=== PATIENT | female | born 1980 ===

== ENCOUNTER 2017-07-20 22:48 | Emergency (ER) | payer OTHER ==
[2017-07-20 22:49] VITALS: BMI 24.7
[2017-07-20 22:59] VITALS: BP 131/76; RESP 20; O2SAT 100
[2017-07-20] MEDS ORDERED: Albuterol 0.083% Inhal Sol (2.5 mg/3 mL) UD IH STA (23:16)
[2017-07-20 23:46] LABS: BASO # 0.1 K/uL (0.0-0.2); EOS # 0.1 K/uL (0.0-0.7); EOS % 1.9 % (0.0-4.0); HEMOGLOBIN 11.3 g/dL (12.0-16.0); LYMPH # 0.8 K/uL (1.0-4.3); LYMPH % 11.9 % (20.0-40.0); MEAN CELL VOLUME 83.4 fl (81.0-99.0); MEAN CORPUSCULAR HEMOGLOBIN 26.8 pg (27.0-31.0); MEAN CORPUSCULAR HGB CONC 32.1 g/dL (33.0-37.0); MEAN PLATELET VOLUME 9.4 fl (7.2-11.7); MONO # 0.6 K/uL (0.0-0.8); MONO % 9.1 % (0.0-10.0); NEUT # 4.8 K/uL (1.8-7.0); NEUT % 76.1 % (50.0-75.0); RBC 4.2 Mil/uL (3.80-5.20); RED CELL DISTRIBUTION WIDTH 21.6 % (11.5-14.5); WHITE BLOOD COUNT 6.3 K/uL (4.8-10.8)
[2017-07-20 23:46] LABS: VENOUS BLOOD GAS BASE EXCESS 1.7 mmol/L (0.0-2.0); VENOUS BLOOD GAS PCO2 45 mmHg (40-60); VENOUS BLOOD GAS PO2 20 mm/Hg (30-55); VENOUS BLOOD PH 7.39 (7.32-7.43)
--- NOTE | 2017-07-21 00:07 | ED PDOC ---
HPI: CCC, URI, Sore Throat Time Seen by Provider: 07/20/17 23:02 Chief Complaint (Nursing): Chest Pain Chief Complaint (Provider): Cough History Per: Patient History/Exam Limitations: no limitations Onset/Duration Of Symptoms: Days (x1) Current Symptoms Are (Timing): Still Present Location Of Pain: Headache Associated Symptoms: Fever, Cough (productive), Sputum (clear), Other (body aches, rhinorrhea) Ear Symptoms: Bilateral: None Additional Complaint(s): Leticia Moncada is a 37 year old female, with a past medical history of asthma, who presents to the emergency department complaining of productive cough with clear sputum, chest tightness, mild rhinorrhea, body aches, headache and fever onset since this morning. Patient took Tylenol with relief of fever but feels chest tightness got worst which prompted her visit to the ED. Patient also reports x2 episodes of non bloody, non bilious vomiting. She has a history of asthma but states last time was x6 years ago. She denies any leg swelling, or diarrhea. No further medical complaints. PMD: Dr. Shy Feng Past Medical History Reviewed: Historical Data, Nursing Documentation, Vital Signs Vital Signs: Last Vital Signs Temp 100.2 F H 07/20/17 23:27 Pulse 78 07/20/17 22:51 Resp 20 07/20/17 22:51 BP 131/76 07/20/17 22:51 Pulse Ox 100 07/20/17 22:51 - Medical History PMH: No Chronic Diseases Denies: Asthma, Chronic Kidney Disease - Surgical History Surgical History: Appendectomy - Family History Family History: States: Unknown Family Hx - Social History Current smoker - smoking cessation education provided: No - Immunization History Hx Tetanus Toxoid Vaccination: No Hx Influenza Vaccination: No Hx Pneumococcal Vaccination: No - Home Medications Home Medications: Ambulatory Orders Medication Instructions Recorded Amoxicillin [Amoxil 500 mg Cap] 500 mg PO BID #13 cap 11/20/16 - Allergies Allergies/Adverse Reactions: Allergies Allergy/AdvReac Type Severity Reaction Status Date / Time No Known Allergies Allergy Verified 04/11/15 12:24 Review of Systems ROS Statement: Except As Marked, All Systems Reviewed And Found Negative Constitutional: Positive for: Fever, Other (body aches) ENT: Positive for: Nose Discharge (mild) Cardiovascular: Negative for: Edema Respiratory: Positive for: Cough (productive), Sputum (clear), Other (Chest tightness) Gastrointestinal: Positive for: Vomiting (x2 episodes non bloody non bilious). Negative for: Diarrhea - Laboratory Results Result Diagrams: 07/20/17 23:38 - ECG ECG Rhythm: Positive for: Normal QRS, Sinus Rhythm Interpretation Of ECG: Normal ST segments. Rate: 86 O2 Sat by Pulse Oximetry: 100 Medical Decision Making Medical Decision Making: Initial Impression: Influenza-like illness and asthma exacerbation Initial Plan: --EKG --B-Type Natriuretic Peptide --Comp Metabolic Panel --Troponin I --Urine --D Dimer --Chest two views (PA/LAT) [RAD] --Tylenol 325mg tab 975mg PO --Albuterol 0.083% Inhal [place] (2.5 mg/3 m) 2.5 mg IH --Toradol 15 mg IVP --Tamiflu Cap 75 mg PO --Blood culture --Peak flow pre/post Tx --Influenza A B --reevaluation --Chest X-Ray show no acute pathology 12:10 --During reevaluation, patient is feeling much better after ER treatment, still pending Flu and repeat temp. 12:12 --Temperature: 99.6 12:15 --Discussed pt findings and plan of care. Pt presented and treated as Influenza and asthma exacerbation. Prescribed for Tamiflu and albuterol. Pt stable for discharge and clear to go home. Scribe Attestation: Documented by Chuck Ojeda, acting as a scribe for Annalisa Don MD Provider Scribe Attestation: All medical record entries made by the Scribe were at my direction and personally dictated by me. I have reviewed the chart and agree that the record accurately reflects my personal performance of the history, physical exam, medical decision making, and the department course for this patient. I have also personally directed, reviewed, and agree with the discharge instructions and disposition. Disposition - Disposition Referrals: Shy Feng MD [Primary Care Provider] -
[2017-07-21 00:08] LABS: ALBUMIN 3.9 g/dL (3.5-5.0); ALT/SGPT 24 U/L (9-52); AST/SGOT 23 U/L (14-36); B-TYPE NATRIURETIC PEPTIDE 171 pg/ml (0-450); BLOOD UREA NITROGEN 3 mg/dl (7-17); CALCIUM 8.7 mg/dL (8.4-10.2); GFR AFRICAN-AMERICAN > 60; GFR NON-AFRICAN AMERICAN > 60
[2017-07-21] MEDS ORDERED: Potassium Chloride 20 mEq ER Tab PO STA (00:09)
[2017-07-21 00:14] VITALS: PULSE 86
[2017-07-21] MEDS ORDERED: Potassium Chloride 20 mEq ER Tab PO ONE (00:30)
[2017-07-21 00:44] VITALS: TEMP 99.5
--- NOTE | 2017-07-21 07:50 | CARD ---
APPROVED REPORT EKG Measurement Heart [id number] <Conclusion> Normal sinus rhythm Junctional ST depression, probably normal Borderline ECG
--- NOTE | 2017-07-21 10:44 | RAD ---
HISTORY: Chest pain. COMPARISON: No prior. TECHNIQUE: Chest PA and lateral FINDINGS: LUNGS: No active pulmonary disease. PLEURA: No significant pleural effusion identified. No pneumothorax apparent. CARDIOVASCULAR: Normal. OSSEOUS STRUCTURES: No significant abnormalities. VISUALIZED UPPER ABDOMEN: Normal. OTHER FINDINGS: None. IMPRESSION: No active disease. Concordant results with the preliminary interpretation rendered by the emergency department physician procedure.
== END 2017-07-21 00:43 | disposition home or self-care (01) ==
LOC: H.ER 22:48
DX: J11.1 Influenza due to unidentified influenza virus with other respiratory manifestations (principal); J45.901 Unspecified asthma with (acute) exacerbation
CPT/HCPCS: 71046; 80053; 82803; 83880; 84484; 85025; 85378; 87040; 87804; 93005; 94640; 96374; 99283; J1885

== ENCOUNTER 2018-05-16 14:56 | Emergency (ER) | payer MEDICAID, OTHER ==
[2018-05-16 14:56] VITALS: BMI 24.7
--- NOTE | 2018-05-16 15:55 | ED PDOC ---
HPI: Female Pain Time Seen by Provider: 05/16/18 15:34 Chief Complaint (Nursing): Female Genitourinary Chief Complaint (Provider): Vaginal bleeding History Per: Patient Additional Complaint(s): 38 yo female, PMH of ovarian cyst and menomettorhagia, presents to D with complaints of lower abd pain and heavy vaginal bleeding x 3 days. Pt states using 2 pads/hr and passing large clots. Pt taking Midol without relief. Pt has a history of enometrial ablation x 2 due to heavy periods. Pt's OB" Dr. De La Cruz Past Medical History Reviewed: Nursing Documentation, Vital Signs Vital Signs: Last Vital Signs Temp 98.6 F 05/16/18 15:16 Pulse 90 05/16/18 15:16 Resp 16 05/16/18 15:16 BP 154/85 H 05/16/18 15:16 Pulse Ox 99 05/16/18 15:16 - Medical History PMH: Asthma Denies: Chronic Kidney Disease - Surgical History Surgical History: Appendectomy - Family History Family History: States: Unknown Family Hx - Living Arrangements Living Arrangements: With Family - Immunization History Hx Tetanus Toxoid Vaccination: No Hx Influenza Vaccination: No Hx Pneumococcal Vaccination: No - Home Medications Home Medications: Ambulatory Orders Medication Instructions Recorded Albuterol HFA [Ventolin HFA 90 2 puff IH Q4H PRN #1 inh 07/21/17 mcg/actuation (8 g)] Guaifenesin/Dextromethorphan 1 tab PO BID PRN #14 tab.er.12h 11/06/17 [Mucinex Dm ER 1,200-60 mg Tab] Oxymetazoline 0.05% [Oxymetazoline 2 sprays NS BID #1 bottle 11/06/17 HCl 30 Ml] Ibuprofen [Motrin] 600 mg PO Q6 #20 tab 05/16/18 MedroxyPROGESTERone [Provera] 10 mg PO BID 10 Days tab 05/16/18 - Allergies Allergies/Adverse Reactions: Allergies Allergy/AdvReac Type Severity Reaction Status Date / Time No Known Allergies Allergy Verified 11/06/17 15:17 Review of Systems ROS Statement: Except As Marked, All Systems Reviewed And Found Negative Genitourinary Female: Positive for: Vaginal Bleeding Physical Exam - Reviewed Nursing Documentation Reviewed: Yes Vital Signs Reviewed: Yes - Physical Exam Appears: Positive for: Well, Non-toxic, No Acute Distress Head Exam: Positive for: ATRAUMATIC, NORMAL INSPECTION, NORMOCEPHALIC Skin: Positive for: Normal Color, Warm, DRY Eye Exam: Positive for: EOMI, Normal appearance, PERRL ENT: Positive for: Normal ENT Inspection Neck: Positive for: Normal, Painless ROM Cardiovascular/Chest: Positive for: Regular Rate, Rhythm Respiratory: Positive for: CNT, Normal Breath Sounds Gastrointestinal/Abdominal: Positive for: Soft, Tenderness (suprapubic). Negative for: Distended, Guarding Pelvic Exam: Positive for: Other (Pt deferred) Back: Positive for: Normal Inspection Extremity: Positive for: Normal ROM Neurologic/Psych: Positive for: Alert, Oriented - Laboratory Results Result Diagrams: 05/16/18 16:43 05/16/18 16:43 - ECG O2 Sat by Pulse Oximetry: 99 Medical Decision Making Medical Decision Making: Diagnostics ordered, Hgb stable 8.3 Pt medicated with Toradol IV, good relief obtained. IMPRESSION: There are multiple uterine fibroids. At least 1 of these fibroids appears to be submucosal and location and pedunculated projecting into the endometrial canal. Consider follow-up hysteroscopy to confirm and exclude the possibility of endometrial polyp or other endometrial pathology. Case d/w OB on-call, Dr. Bearden, who advisde Provera 10 mg BID x 10 days and OB follow up outpt. Motrin RX administered as well for cramping. Advised to return to ED if at anytime condition worsens Disposition - Clinical Impression Clinical Impression: Uterine fibroid - Patient ED Disposition Is Patient to be Admitted: No - Disposition Disposition: Routine/Home Disposition Time: 18:53 Condition: STABLE Prescriptions: Ibuprofen [Motrin] 600 mg PO Q6 #20 tab MedroxyPROGESTERone [Provera] 10 mg PO BID 10 Days tab Instructions: Uterine Fibroids Forms: [employer] ([place])
[2018-05-16 16:52] LABS: BASO # 0.1 K/uL (0.0-0.2); BASO % 1.8 % (0.0-2.0); EOS # 0.2 K/uL (0.0-0.7); EOS % 2.4 % (0.0-4.0); HEMOGLOBIN 8.3 g/dL (12.0-16.0); LYMPH # 2.4 K/uL (1.0-4.3); MEAN CORPUSCULAR HGB CONC 29.1 g/dL (33.0-37.0); MEAN PLATELET VOLUME 9.1 fl (7.2-11.7); MONO # 0.5 K/uL (0.0-0.8); MONO % 6.2 % (0.0-10.0); NEUT # 4.4 K/uL (1.8-7.0); NEUT % 57.6 % (50.0-75.0); RBC 4.16 Mil/uL (3.80-5.20); WHITE BLOOD COUNT 7.6 K/uL (4.8-10.8)
[2018-05-16 17:04] LABS: ALBUMIN 4.1 g/dL (3.5-5.0); ALT/SGPT 21 U/L (9-52); AST/SGOT 23 U/L (14-36); BLOOD UREA NITROGEN 8 mg/dl (7-17); GFR NON-AFRICAN AMERICAN > 60
--- NOTE | 2018-05-16 17:56 | US ---
Date of service: 05/16/2018 HISTORY: menorrhagia COMPARISON: None available. TECHNIQUE: Transabdominal/transvaginal sonographic FINDINGS: UTERUS: Measures 10.4 x 12.12 x 7.5 cm. Normal in size and appearance. There are multiple uterine fibroids largest of which is subserosal measuring 7 point 2 cm and the 2nd largest submucosal in location measuring 4.2 cm. Questionable pedunculated submucosal fibroid measuring 4.9 cm. The possibility of a endometrial polyp or localized endometrial hyperplasia not excluded. Consider follow-up of hysteroscopy to exclude other endometrial pathology. At least 2 additional fibroids are also present ENDOMETRIUM: Not definitively visualized fibroids. CERVIX: No cervical abnormality identified cervix measures approximately 3.55 cm.. Suspect small of nabothian cyst. RIGHT OVARY: Measures 1.7 x 1.3 x 2.4 cm. No solid mass. Normal flow. LEFT OVARY: Measures 2.7 x 1.5 x 1.7 cm. No solid mass. Normal flow. FREE FLUID: No significant free fluid noted. OTHER FINDINGS: None. IMPRESSION: There are multiple uterine fibroids. At least 1 of these fibroids appears to be submucosal and location and pedunculated projecting into the endometrial canal. Consider follow-up hysteroscopy to confirm and exclude the possibility of endometrial polyp or other endometrial pathology.
[2018-05-16 18:12] VITALS: RESP 18
[2018-05-16 18:42] LABS: MEAN CELL VOLUME 68.9 fl (81.0-99.0)
[2018-05-16 19:23] VITALS: BP 130/81; PULSE 81; TEMP 98; O2SAT 100
== END 2018-05-16 19:22 | disposition home or self-care (01) ==
LOC: H.ER 14:56
DX: D25.9 Leiomyoma of uterus, unspecified (principal); N92.0 Excessive and frequent menstruation with regular cycle; J45.909 Unspecified asthma, uncomplicated
CPT/HCPCS: 76830; 76856; 80053; 81025; 85025; 86850; 86900; 96374; 99284; J1885

== ENCOUNTER 2018-07-28 08:02 | Emergency (ER) | payer MEDICAID ==
[2018-07-28 08:33] VITALS: BMI 47.4
--- NOTE | 2018-07-28 08:57 | ED PDOC ---
HPI: Female Pain Time Seen by Provider: 07/28/18 08:23 Chief Complaint (Nursing): Female Genitourinary Chief Complaint (Provider): Pelvic Pain History Per: Patient History/Exam Limitations: no limitations Onset/Duration Of Symptoms: Hrs Current Symptoms Are (Timing): Still Present Quality Of Discomfort: "Pain" Associated Symptoms: Nausea Additional Complaint(s): 38 year old female with PMHx of uterine fibroids and gastritis presents to the ED for an evaluation of pelvic pain due to menstruation onset today. She also reports of pain with urination, nausea and mild headache in the morning. She states she has a similar problem in the past and when she gets her menstruation period, she has pain in the pelvic area. Otherwise, she denies diarrhea, vomiting, dizziness, fever, cough or shortness of breath. PMD: Amina Hair Past Medical History Reviewed: Historical Data, Nursing Documentation, Vital Signs - Medical History PMH: Asthma Denies: Chronic Kidney Disease - Surgical History Surgical History: Appendectomy Other surgeries: ovarian cyst - Family History Family History: States: Unknown Family Hx - Social History Current smoker - smoking cessation education provided: No Alcohol: Social Drugs: Denies - Immunization History Hx Tetanus Toxoid Vaccination: No Hx Influenza Vaccination: No Hx Pneumococcal Vaccination: No - Home Medications Home Medications: Ambulatory Orders Medication Instructions Recorded RX: Albuterol HFA [Ventolin HFA 90 2 puff IH Q4H PRN #1 inh 07/21/17 mcg/actuation (8 g)] Guaifenesin/Dextromethorphan 1 tab PO BID PRN #14 tab.er.12h 11/06/17 [Mucinex Dm ER 1,200-60 mg Tab] Oxymetazoline 0.05% [Oxymetazoline 2 sprays NS BID #1 bottle 11/06/17 HCl 30 Ml] MedroxyPROGESTERone [Provera] 10 mg PO BID 10 Days tab 05/16/18 Ibuprofen [Motrin] 600 mg PO Q6 #20 tab 07/28/18 RX: Ferrous Sulfate 325 mg PO BID #60 tablet 07/28/18 RX: Omeprazole 20 mg PO DAILY #30 capsule. 07/28/18 - Allergies Allergies/Adverse Reactions: Allergies Allergy/AdvReac Type Severity Reaction Status Date / Time No Known Allergies Allergy Verified 11/06/17 15:17 Review of Systems ROS Statement: Except As Marked, All Systems Reviewed And Found Negative Constitutional: Negative for: Fever, Chills Respiratory: Negative for: Cough, Shortness of Breath Gastrointestinal: Positive for: Nausea. Negative for: Vomiting, Diarrhea Genitourinary Female: Positive for: Dysuria, Pelvic Pain Neurological: Positive for: Headache. Negative for: Dizziness Physical Exam - Reviewed Nursing Documentation Reviewed: Yes Vital Signs Reviewed: Yes - Physical Exam Appears: Positive for: Well, Non-toxic, No Acute Distress Head Exam: Positive for: ATRAUMATIC, NORMAL INSPECTION, NORMOCEPHALIC Skin: Positive for: Normal Color, Warm, Dry. Negative for: Rash Eye Exam: Positive for: EOMI, Normal appearance, PERRL ENT: Positive for: Normal ENT Inspection Neck: Positive for: Normal, Painless ROM, Supple Cardiovascular/Chest: Positive for: Regular Rate, Rhythm. Negative for: Murmur Respiratory: Positive for: Normal Breath Sounds. Negative for: Decreased Breath Sounds, Wheezing, Respiratory Distress Gastrointestinal/Abdominal: Positive for: Tenderness (suprapubic and epigastric ) Back: Positive for: Normal Inspection. Negative for: L CVA Tenderness, R CVA Tenderness Extremity: Positive for: Normal ROM. Negative for: Tenderness, Pedal Edema, Deformity Neurologic/Psych: Positive for: Alert, Oriented (x3). Negative for: Motor/Sensory Deficits - Laboratory Results Result Diagrams: 07/28/18 09:12 07/28/18 09:12 - ECG Pulse Ox Interpretation: Normal - Progress Re-evaluation Time: 11:50 Condition: Re-examined, Improved Medical Decision Making Medical Decision Making: Time: 0840 Impression: Abdominal pain, Nausea and LMP now Differential Diagnosis includes but is not limited to: urinary tract infection, ovarian cyst, uterine fibroids, gastritis and pancreatitis Plan: --CMP --Lipase --ED Urine (POC) --ED Urine dipstick --CBC w/ Differential --Toradol 30mg --Zofran 4mg --IV insertion --Transvaginal US --Reevaluation Time: 1114 FINDINGS: UTERUS: Measures 12.8 x 12.6 x 7.2 cm. Anteverted and enlarged. There are multiple fibroids, the largest fundal fibroid measures 5.8 x 5.8 x 7.3 cm, intramural fibroid on the right measures 7.6 x 6.0 x 8.2 cm and intramural lower uterine segment on the left measures 3.5 x 3.6 x 3.0 cm. Direct comparison is limited given differences in slice selection. ENDOMETRIUM: Obscured by multiple fibroids. CERVIX: There is a nabothian cyst in the cervix. RIGHT OVARY: Not visualized. LEFT OVARY: Not visualized. FREE FLUID: No significant free fluid noted. OTHER FINDINGS: None. IMPRESSION: Enlarged fibroid uterus, the largest intramural fibroid on the right measures 7.6 x 6.0 x 8.2 cm. - Scribe Attestation: Documented by Sharon Frey, acting as a scribe for Dank Jefferson MD. Provider Scribe Attestation: All medical record entries made by the Scribe were at my direction and personally dictated by me. I have reviewed the chart and agree that the record accurately reflects my personal performance of the history, physical exam, medical decision making, and the department course for this patient. I have also personally directed, reviewed, and agree with the discharge instructions and disposition. Disposition - Clinical Impression Clinical Impression: Uterine fibroid, Dysmenorrhea, Gastritis, Anemia - Patient ED Disposition Is Patient to be Admitted: No Doctor Will See Patient In The: Office Counseled Patient/Family Regarding: Studies Performed, Diagnosis, Need For Followup - Disposition Referrals: Amina Hair [Family Provider] - Disposition: Routine/Home Disposition Time: 11:53 Condition: IMPROVED Additional Instructions: MICHAELA WHITING, thank you for letting us take care of you today. Your provider was Dank Jefferson MD and you were treated for ABD PAIN,HEADACHE. The emergency medical care you received today was directed at your acute symptoms. If you were prescribed any medication, please fill it and take as directed. It may take several days for your symptoms to resolve. Return to the Emergency Department if your symptoms worsen, do not improve, or if you have any other problems. Please contact your doctor or call one of the physicians/clinics you have been referred to that are listed on the Patient Visit Information form that is included in your discharge packet. Bring any paperwork you were given at discharge with you along with any medications you are taking to your follow up visit. Our treatment cannot replace ongoing medical care by a primary care provider outside of the emergency department. Thank you for allowing the [facility] team to be part of your care today. If you had an X-Ray or CT scan: A Radiologist will review the ED reading if any change in treatment is needed we will contact you. If you had a blood, urine, or wound culture: It will take several days for the results, if any change in treatment is needed we will contact you. If you had an STI test: It will take 48 hours for the results. Please call after 1 week if you have not heard back. Prescriptions: RX: Ferrous Sulfate 325 mg PO BID #60 tablet Ibuprofen [Motrin] 600 mg PO Q6 #20 tab RX: Omeprazole 20 mg PO DAILY #30 capsule. Instructions: Uterine Fibroids, Anemia Caused by Low Iron, Adult (DC), Gastritis (DC) Forms: [facility] ED School/Work Excuse Print Language: HUNGARIAN
[2018-07-28 09:30] LABS: ALT/SGPT 18 U/L (9-52); AST/SGOT 22 U/L (14-36); BLOOD UREA NITROGEN 4 mg/dl (7-17); CALCIUM 9.2 mg/dL (8.4-10.2); GFR NON-AFRICAN AMERICAN > 60; LIPASE 49 U/L (23-300)
[2018-07-28 09:39] LABS: BASO # 0.1 K/uL (0.0-0.2); BASO % 1.4 % (0.0-2.0); EOS # 0.1 K/uL (0.0-0.7); HEMOGLOBIN 8.3 g/dL (12.0-16.0); LYMPH # 1.6 K/uL (1.0-4.3); LYMPH % 25.7 % (20.0-40.0); MEAN CELL VOLUME 67.8 fl (81.0-99.0); MEAN CORPUSCULAR HEMOGLOBIN 19.8 pg (27.0-31.0); MEAN CORPUSCULAR HGB CONC 29.2 g/dL (33.0-37.0); MONO # 0.4 K/uL (0.0-0.8); MONO % 7.2 % (0.0-10.0); NEUT # 3.9 K/uL (1.8-7.0); NEUT % 63.7 % (50.0-75.0); RBC 4.18 Mil/uL (3.80-5.20); RED CELL DISTRIBUTION WIDTH 18.3 % (11.5-14.5); WHITE BLOOD COUNT 6.1 K/uL (4.8-10.8)
--- NOTE | 2018-07-28 11:17 | US ---
Date of service: 07/28/2018 HISTORY: Pelvic pain COMPARISON: 05/16/2018. TECHNIQUE: Transvaginal pelvic ultrasound was performed. FINDINGS: UTERUS: Measures 12.8 x 12.6 x 7.2 cm. Anteverted and enlarged. There are multiple fibroids, the largest fundal fibroid measures 5.8 x 5.8 x 7.3 cm, intramural fibroid on the right measures 7.6 x 6.0 x 8.2 cm and intramural lower uterine segment on the left measures 3.5 x 3.6 x 3.0 cm. Direct comparison is limited given differences in slice selection. ENDOMETRIUM: Obscured by multiple fibroids. CERVIX: There is a nabothian cyst in the cervix. RIGHT OVARY: Not visualized. LEFT OVARY: Not visualized. FREE FLUID: No significant free fluid noted. OTHER FINDINGS: None. IMPRESSION: Enlarged fibroid uterus, the largest intramural fibroid on the right measures 7.6 x 6.0 x 8.2 cm.
[2018-07-28 12:09] VITALS: RESP 18
[2018-07-28 12:11] VITALS: BP 130/70; PULSE 70; TEMP 97.8; O2SAT 98
== END 2018-07-28 12:09 | disposition home or self-care (01) ==
LOC: H.ER 08:02
DX: D25.9 Leiomyoma of uterus, unspecified (principal); N94.6 Dysmenorrhea, unspecified; K29.70 Gastritis, unspecified, without bleeding; D64.9 Anemia, unspecified; J45.909 Unspecified asthma, uncomplicated
CPT/HCPCS: 76830; 80053; 81025; 83690; 85025; 96374; 96375; 99284; J1885; J2405